=== PATIENT | female | born 1990 | race Two or more races ===

== ENCOUNTER 2019-01-24 15:39 | Inpatient (IN) | payer OTHER ==
[~2019-01-24] VITALS: Ht 165.1 cm; Wt 74.4 kg
[2019-01-24] MEDS ORDERED: PRENATAL TABLE1 EACH PO (22:09)
[2019-01-24] MEDS ORDERED: FOLIC ACID1 MG PO (22:10)
== END 2019-02-03 10:17 | disposition home or self-care (01) | DRG 817 ==
LOC: OB/GYN 15:39 → LDR 15:39 → OB/GYN 01-26 10:53
PROVIDERS: ADMIT Obstetrics & Gynecology Maternal & Fetal Medicine
PROC: 4A1HXCZ Monitoring of Products of Conception, Cardiac Rate, External Approach (ICD-10-PCS; 2019-01-24)
PROC: 0UVC7ZZ Restriction of Cervix, Via Natural or Artificial Opening (ICD-10-PCS; principal; 2019-01-25 09:00)
PROC: BY4DZZZ Ultrasonography of Second Trimester, Multiple Gestation (ICD-10-PCS; 2019-01-27)
DX: O65.5 Obstructed labor due to abnormality of maternal pelvic organs (principal); O34.32 Maternal care for cervical incompetence, second trimester; Z3A.22 22 weeks gestation of pregnancy

== ENCOUNTER 2019-02-06 05:36 | Inpatient (IN) | payer OTHER ==
[~2019-02-06] VITALS: Ht 165.1 cm; Wt 74.4 kg
[~2019-02-06 05:36] MED LIST: FOLIC ACID1 MG PO; PRENATAL TABLE1 EACH PO
[2019-02-07] MEDS ORDERED: NIFE60TA3 PO (02:57)
[2019-02-07] MEDS ORDERED: ASA81 MG PO (02:58)
== END 2019-03-07 10:34 | disposition home or self-care (01) | DRG 831 ==
LOC: OB/GYN 05:36 → LDR 05:36 → OB/GYN 02-11 10:33
PROVIDERS: ADMIT Obstetrics & Gynecology
PROC: BY4DZZZ Ultrasonography of Second Trimester, Multiple Gestation (ICD-10-PCS; principal; 2019-02-06)
PROC: BY4DZZZ Ultrasonography of Second Trimester, Multiple Gestation (ICD-10-PCS; 2019-02-06)
PROC: 4A1HXCZ Monitoring of Products of Conception, Cardiac Rate, External Approach (ICD-10-PCS; 2019-02-06)
PROC: BY4DZZZ Ultrasonography of Second Trimester, Multiple Gestation (ICD-10-PCS; 2019-02-20)
PROC: BY4DZZZ Ultrasonography of Second Trimester, Multiple Gestation (ICD-10-PCS; 2019-02-20)
DX: O26.852 Spotting complicating pregnancy, second trimester (principal); O34.32 Maternal care for cervical incompetence, second trimester; O30.042 Twin pregnancy, dichorionic/diamniotic, second trimester

== ENCOUNTER 2019-03-12 09:13 | Outpatient (CLI) | payer OTHER ==
[~2019-03-12 09:13] MED LIST changes: +ASA81 MG PO; +NIFE60TA3 PO
== END 2019-03-12 10:30 | disposition home or self-care (01) ==
LOC: NST 09:13
DX: Z34.83 Encounter for supervision of other normal pregnancy, third trimester (principal)

== ENCOUNTER 2019-03-18 10:47 | Outpatient (CLI) | payer OTHER | END 2019-03-18 11:45 | disposition home or self-care (01) | LOC: NST 10:47 | DX: Z34.83 Encounter for supervision of other normal pregnancy, third trimester (principal) ==

== ENCOUNTER 2019-04-02 14:30 | Outpatient (CLI) | payer OTHER | END 2019-04-02 15:58 | disposition home or self-care (01) | LOC: NST 14:30 | DX: O30.093 Twin pregnancy, unable to determine number of placenta and number of amniotic sacs, third trimester (principal); Z3A.32 32 weeks gestation of pregnancy ==

== ENCOUNTER 2019-04-09 10:10 | Outpatient (CLI) | payer OTHER | END 2019-04-09 11:00 | disposition home or self-care (01) | LOC: NST 10:10 | DX: Z34.83 Encounter for supervision of other normal pregnancy, third trimester (principal); Z3A.33 33 weeks gestation of pregnancy ==

== ENCOUNTER → 2019-04-23 | Outpatient (CLI) | payer OTHER | END | disposition home or self-care (01) | LOC: NST 14:13 | DX: Z34.83 Encounter for supervision of other normal pregnancy, third trimester (principal) ==

== ENCOUNTER 2019-04-28 20:54 | Inpatient (IN) | payer OTHER ==
[~2019-04-28] VITALS: Ht 165.1 cm; Wt 76.7 kg
== END 2019-05-01 15:02 | disposition home or self-care (01) | DRG 788 ==
LOC: OB/GYN 20:54 → LDR 20:54 → O/R 21:57 → OB/GYN 04-29 00:59
PROVIDERS: ADMIT Obstetrics & Gynecology
PROC: 4A1HXCZ Monitoring of Products of Conception, Cardiac Rate, External Approach (ICD-10-PCS; 2019-04-28)
PROC: 10D00Z1 Extraction of Products of Conception, Low, Open Approach (ICD-10-PCS; principal; 2019-04-28 21:15)
DX: O82 Encounter for cesarean delivery without indication (principal); O32.1XX0 Maternal care for breech presentation, not applicable or unspecified; O30.043 Twin pregnancy, dichorionic/diamniotic, third trimester; Z3A.35 35 weeks gestation of pregnancy; Z37.2 Twins, both liveborn

== ENCOUNTER → 2019-06-09 15:34 | Outpatient (CLI) | payer OTHER | END | disposition home or self-care (01) | LOC: LAB 15:34 | DX: D50.8 Other iron deficiency anemias (principal); O72.2 Delayed and secondary postpartum hemorrhage; D51.0 Vitamin B12 deficiency anemia due to intrinsic factor deficiency ==

== ENCOUNTER → 2019-11-18 | Outpatient (CLI) | payer OTHER | END | disposition home or self-care (01) | LOC: SONOGRAMA 10:47 | DX: N76.0 Acute vaginitis (principal); N63.10 Unspecified lump in the right breast, unspecified quadrant ==

== ENCOUNTER → 2020-11-05 07:15 | Outpatient (CLI) | payer OTHER | END | disposition home or self-care (01) | LOC: LAB 07:15 | PROVIDERS: ATTEND Obstetrics & Gynecology | DX: D50.8 Other iron deficiency anemias (principal); E03.8 Other specified hypothyroidism ==